=== PATIENT | male | born 1975 | race Caucasian/White ===

== ENCOUNTER 2019-08-23 13:21 | Emergency (ER) | payer OTHER ==
[~2019-08-23] VITALS: Ht 172.7 cm; Wt 92.1 kg
--- NOTE | 2019-08-23 13:30 | NUR ---
PT CAME INTO THE ED C/O ALLERGY AFTER BEE STING. PATIENT AAOX4, VSS, BREATHING EVEN AND UNLABORED ON ROOM AIR W/ NAD. PT CONNECTED TO THE MONITOR AND POX
--- NOTE | 2019-08-23 14:33 | NUR ---
Patient discharged to home in stable condition. Written and verbal after care instructions given. Patient verbalizes understanding of instruction.
[2019-08-23 14:34] VITALS: BP 118/72
== END 2019-08-23 14:34 | disposition home or self-care (01) ==
LOC: ER 13:24
DX: T63.441A Toxic effect of venom of bees, accidental (unintentional), initial encounter (principal); I10 Essential (primary) hypertension; E11.9 Type 2 diabetes mellitus without complications; Y92.89 Other specified places as the place of occurrence of the external cause